=== PATIENT | female | born 1970 | race Caucasian/White ===

== ENCOUNTER → 2019-01-10 | Outpatient (REF) | payer OTHER ==
[~2019-01-10] MED LIST: ALPRAZOLAM0.5 MG PO; AMLODIPINE10 MG PO; AUGMENTIN500TAB PO; CLONIDINE0.2 MG PO; DEXILANT60 MG PO; ENALAPRIL20 MG PO; FLEXERIL PO; FLEXERIL10 MG PO; FUROSEMIDE40 MG PO; GABAPENTIN300 MG PO; KLOR-CON 1010 ME1 PO; LABETALOL100 MG PO; LORTAB 7.5 PO; LORTAB5 PO; MEDDOSEPAK PO; MELOXICAM7.5 MG PO; MIRALAX3350 N1 PO; NEURONTIN300 MG PO; NO MEDS; OMEPRAZOLE20 MG PO; OXYCOD/APAP1 TA4 PO; PERCOCET 5/325M1 TAB PO; PERCOCET1 TA4 PO; PRILOSEC20 MG/CAP PO; PRILOSEC40 MG PO; SIMVASTATIN10 MG PO; STERAPRED5 MG PO; TRICOR145 MG PO; ZOFRAN ODT8 MG SL
[2019-01-10 09:41] LABS: ALBUMIN 3.6 g/dL (3.2-5.0); ALKALINE PHOSPHATASE 83 u/l (38-126); ANION GAP 13 (6-22 (CALC)); BILIRUBIN, TOTAL 0.5 mg/dL (0.0-1.4); BUN 19 mg/dL (7-17); BUN/CREATININE RATIO 18 (12-20 (CALC)); CARBON DIOXIDE 27 mmol/l (22-30); CHLORIDE 100 mmol/l (95-108); CREATININE 1.1 mg/dL (0.5-1.0); GFR 53 ML/MIN (>=60 (CALC)); GFR FOR AFR.AMER. > 60 ML/MIN (>=60 (CALC)); HDL CHOLESTEROL 68 mg/dL (>=40); POTASSIUM 3.6 mmol/l (3.5-5.1); SGOT/AST 43 u/l (14-36); SODIUM 136 mmol/l (137-146); TOTAL PROTEIN 6.3 g/dL (6.3-8.2)
[2019-01-10 09:43] LABS: HEMATOCRIT 42.4 % (37.0-47.0); HEMOGLOBIN 14.3 g/dl (12.0-16.0); IMMATURE GRANULOCYTES 0.3 % (0.0-5.0); MEAN CELL VOLUME 100.7 fL CALC (80.0-100.0); MEAN CORPUSCULAR HGB CONC 33.7 g/L CALC (32.0-36.0); NEUT# 8.83 thou/uL (2.00-7.15); RED BLOOD COUNT 4.21 mill/uL (4.20-5.60); RED CELL DISTRI WIDTH 14.6 % (11.5-15.5)
[2019-01-10 09:44] LABS: TOTAL TRIGLYCERIDES 421 mg/dl (30-149); VLDL CHOLESTROL 84 mg/dl (1-41 (CALC))
[2019-01-10 09:50] LABS: CALCULATED LDLCHOLESTEROL 251 mg/dL (62-129 (CALC)); CHOLESTEROL HDL RATIO 5.9 (<4.4 (CALC)); TOTAL CHOLESTEROL 403 mg/dl (0-199)
== END | disposition home or self-care (01) | DRG 305 ==
LOC: LAB 08:39
PROVIDERS: ATTEND Internal Medicine Geriatric Medicine
DX: I10 Essential (primary) hypertension (principal)

== ENCOUNTER 2019-10-31 13:55 | Emergency (ER) | payer OTHER ==
[~2019-10-31] VITALS: Ht 162.6 cm; Wt 93.2 kg
[~2019-10-31 13:55] MED LIST changes: +ZESTRIL10 M1 PO
[2019-10-31 14:24] LABS: IMMATURE GRANULOCYTES 0.2 % (0.0-5.0); MEAN CORPUSCULAR HGB 32.8 pG CALC (26.0-32.0); MEAN CORPUSCULAR HGB CONC 34.2 g/L CALC (32.0-36.0); NEUT# 7.13 thou/uL (2.00-7.15); RED BLOOD COUNT 4.05 mill/uL (4.20-5.60)
[2019-10-31 14:38] LABS: HEMATOCRIT 38.9 % (37.0-47.0); HEMOGLOBIN 13.3 g/dl (12.0-16.0)
[2019-10-31 14:48] LABS: ALBUMIN 3.5 g/dL (3.2-5.0); BILIRUBIN, TOTAL 0.3 mg/dL (0.0-1.4); CREATININE 1.3 mg/dL (0.5-1.0); POTASSIUM 3.2 mmol/l (3.5-5.1)
[2019-10-31 14:55] VITALS: BP 194/144
[2019-10-31 14:56] LABS: ACT PARTIAL THROMBO TIME 28.6 SECONDS (20.0-32.5); INTERNATIONAL NORMALIZED RATIO 0.9 RATIO (0.7-1.3); PROTHROMBIN TIME 9.6 SECONDS (9.0-12.5)
[2019-10-31 15:17] LABS: TSH, 3RD GENERATION 0.8 uIU/mL (0.47 - 4.68)
[2019-12-27] MEDS ORDERED: PERCOCET1 TA4 PO (15:22)
== END 2019-10-31 14:55 | disposition short-term general hospital (02) | DRG 65 ==
LOC: ED 13:55
DX: I61.8 Other nontraumatic intracerebral hemorrhage (principal); G81.94 Hemiplegia, unspecified affecting left nondominant side; R29.810 Facial weakness; I10 Essential (primary) hypertension; F17.200 Nicotine dependence, unspecified, uncomplicated; R29.716 NIHSS score 16